=== PATIENT | male | born 1950 | race Caucasian/White ===

== ENCOUNTER 2023-01-21 20:29 | Inpatient (IN) | payer MEDICARE ==
[2023-01-21] MEDS ORDERED: Acetaminophen 325 MG Tab PO ONE (20:30)
[2023-01-21 20:44] LABS: HEMATOCRIT 45.9 % (38.3-50.1); MEAN CORPUSCULAR HEMOGLOBIN 30.2 pg (27.0-33.3); MEAN CORPUSCULAR HGB CONC 32.6 g/dL (28.7-35.3); MEAN CORPUSCULAR VOLUME 92.6 fL (80.8-98.7); MEAN PLATELET VOLUME 7.7 fL (6.7-11.0); PLATELET COUNT,PLT 308 x10(3)uL (117-477); RED BLOOD CELL COUNT 4.96 x10(6)uL (3.90-5.90)
[2023-01-21] MEDS ORDERED: Piperacillin/Tazobactam 3.375 GM in Sodium Chloride 0.9% 50 ML IV SCH (20:45)
[2023-01-21] MEDS ORDERED: Sodium Chloride 0.9% 1,000 ML IV SCH (20:45)
[2023-01-21 20:47] LABS: BLOOD UREA NITROGEN,BUN 24 mg/dL (7-18); BUN/CREATININE RATIO 18.5 (9-20); CALCIUM 8.7 mg/dL (8.6-10.2); CARBON DIOXIDE,CO2 27 mmol/L (21-32); CHLORIDE,CL 100 mmol/L (100-110); CREATININE 1.3 mg/dL (0.70-1.30); ESTIMATED GFR 58 mL/min (>60); GLUCOSE RANDOM 128 mg/dL (80-116); POTASSIUM,K 4.7 mmol/L (3.5-5.3); SODIUM,NA 138 mmol/L (135-145)
[2023-01-21 20:52] LABS: A/G RATIO 0.5; ALANINE AMINOTRANSFERASE,ALT 22 U/L (12-36); ALBUMIN 2.7 g/dL (3.2-4.6); ALKALINE PHOSPHATASE 168 IU/L (56-112); ASPARTATE AMNIOTRANSFERASE,AST 27 IU/L (5-25); BILIRUBIN TOTAL 0.7 mg/dL (0.1-1.3); PROTEIN TOTAL,TP 7.8 g/dL (6.0-8.0)
[2023-01-21 21:00] LABS: BAND PERCENT MAN 1 % (0-6); LYMPHOCYTES PERCENT MAN 10 % (13-37); MONOCYTES PERCENT MAN 3 % (4-12); SEG NEUTROPHILS PERCENT MAN 86 % (46-82)
[2023-01-21 21:01] LABS: TROPONIN I 11.2 pg/mL (4.0-60.3)
[2023-01-21 21:02] LABS: C-REACTIVE PROTEIN 17.99 mg/dL (<0.33)
[2023-01-21] MEDS ORDERED: Ondansetron 4 MG/2 ML SDV IV PRN (21:33)
[2023-01-21] MEDS ORDERED: Acetaminophen 325 MG Tab PO PRN (21:33)
[2023-01-21] MEDS ORDERED: Sodium Chloride 0.9% 1,000 ML IV ONE (22:58)
[2023-01-21] MEDS: Enoxaparin 40 MG/0.4 ML Syringe SUBCUT SCH (23:40)
[2023-01-21] MEDS ORDERED: Iopamidol 755 Mg/ML 100 ML Bottle IV SCH (23:45)
[2023-01-22] MEDS ORDERED: Lidocaine 2% HCl 6 ML Jel MM ONE (00:57)
[2023-01-22 01:34] LABS: BILIRUBIN,URINE NEGATIVE (NEGATIVE); GLUCOSE,URINE NORMAL (NORMAL); KETONES,URINE NEGATIVE (NEGATIVE); LEUKOCYTE ESTERASE,URINE MODERATE (NEGATIVE); NITRITE,URINE NEGATIVE (NEGATIVE); OCCULT BLOOD,URINE LARGE (NEGATIVE); PROTEIN,URINE TRACE mg/dL (NEGATIVE); UROBILINOGEN,URINE NORMAL (NEGATIVE)
[2023-01-22 01:39] LABS: APPEARANCE,URINE SLIGHTLY CLOUDY (CLEAR); BACTERIA,URINE FEW (NS); CALCIUM OXALATE CRYSTALS,URINE FEW (NS); COLOR,URINE YELLOW (YELLOW); RBC,URINE 40-50 (0-5); SQUAMOUS EPITHELIAL CELLS,UR OCCASIONAL (NS,R,O); WBC,URINE 20-30 (0-5)
[2023-01-22] MEDS: Piperacillin/Tazobactam 3.375 GM in Sodium Chloride 0.9% 50 ML IV SCH ×4 (03:51→21:56)
[2023-01-22 06:42] LABS: HEMATOCRIT 39.1 % (38.3-50.1); HEMOGLOBIN 12.7 g/dL (12.9-17.7); MEAN CORPUSCULAR HEMOGLOBIN 29.6 pg (27.0-33.3); MEAN CORPUSCULAR HGB CONC 32.4 g/dL (28.7-35.3); MEAN CORPUSCULAR VOLUME 91.4 fL (80.8-98.7); MEAN PLATELET VOLUME 7.7 fL (6.7-11.0); PLATELET COUNT,PLT 265 x10(3)uL (117-477); RED BLOOD CELL COUNT 4.28 x10(6)uL (3.90-5.90); RED CELL DISTRIBUTION WIDTH 13.8 % (12.4-15.0); WHITE BLOOD CELL COUNT,WBC 21.7 x10-3/uL (3.2-10.1)
[2023-01-22 06:49] LABS: BLOOD UREA NITROGEN,BUN 25 mg/dL (7-18); BUN/CREATININE RATIO 19.2 (9-20); CALCIUM 7.8 mg/dL (8.6-10.2); CARBON DIOXIDE,CO2 26 mmol/L (21-32); CHLORIDE,CL 106 mmol/L (100-110); CREATININE 1.3 mg/dL (0.70-1.30); EST CRCL DRUG DOSING (CG) 48.23 mL/min; ESTIMATED GFR 58 mL/min (>60); GLUCOSE RANDOM 131 mg/dL (80-116); POTASSIUM,K 3.8 mmol/L (3.5-5.3); SODIUM,NA 140 mmol/L (135-145)
[2023-01-22] MEDS: Sodium Chloride 0.9% 1,000 ML IV SCH (06:55)
[2023-01-22 07:03] LABS: BAND PERCENT MAN 8 % (0-6); LYMPHOCYTES PERCENT MAN 10 % (13-37); MONOCYTES PERCENT MAN 4 % (4-12); SEG NEUTROPHILS PERCENT MAN 78 % (46-82)
[2023-01-22] MEDS ORDERED: VANCOmycin 2 GM/400 ML 2 GM in Premix Bag 1 BAG IV ONE (11:05)
[2023-01-22] MEDS: Metoprolol Tartrate 100 MG Tab PO SCH ×2 (12:22→20:19)
[2023-01-22] MEDS: Aspirin 81 MG Tab.EC PO SCH (12:22)
[2023-01-22] MEDS: Furosemide 40 MG Tab PO SCH (12:23)
[2023-01-22] MEDS: Tamsulosin 0.4 MG Cap.ER PO SCH (12:23)
[2023-01-22] MEDS: Clopidogrel 75 MG Tab PO SCH (12:23)
[2023-01-22] MEDS: atorvaSTATin 40 MG Tab PO SCH (20:19)
[2023-01-22] MEDS: Saccharomyces Boulardii (Probiotic) 250 MG Cap PO SCH (20:19)
[2023-01-22] MEDS: Enoxaparin 40 MG/0.4 ML Syringe SUBCUT SCH (21:53)
[2023-01-23] MEDS: Sodium Chloride 0.9% 1,000 ML IV SCH (00:45)
[2023-01-23] MEDS: Piperacillin/Tazobactam 3.375 GM in Sodium Chloride 0.9% 50 ML IV SCH ×4 (03:44→22:11)
[2023-01-23 06:50] LABS: BASOPHILS PERCENT AUTO 0.4 % (0.3-3.8); EOSINOPHILS ABSOLUTE AUTO 0.3 x10-3/uL (0.0-0.6); EOSINOPHILS PERCENT AUTO 2.8 % (0.1-6.8); HEMATOCRIT 39.1 % (38.3-50.1); LYMPHOCYTES ABSOLUTE AUTO 1.1 x10-3/uL (0.5-4.5); LYMPHOCYTES PERCENT AUTO 9.3 % (15.8-45.3); MEAN CORPUSCULAR HEMOGLOBIN 30.1 pg (27.0-33.3); MEAN CORPUSCULAR HGB CONC 33.3 g/dL (28.7-35.3); MEAN CORPUSCULAR VOLUME 90.5 fL (80.8-98.7); MEAN PLATELET VOLUME 7.8 fL (6.7-11.0); MONOCYTES ABSOLUTE AUTO 0.5 x10-3/uL (0.0-1.2); MONOCYTES PERCENT AUTO 4.7 % (5.5-15.2); NEUTROPHILS ABSOLUTE AUTO 9.5 x10-3/uL (1.7-6.9); NEUTROPHILS PERCENT AUTO 82.8 % (40.3-71.8); PLATELET COUNT,PLT 246 x10(3)uL (117-477); RED BLOOD CELL COUNT 4.32 x10(6)uL (3.90-5.90); RED CELL DISTRIBUTION WIDTH 13.9 % (12.4-15.0); WHITE BLOOD CELL COUNT,WBC 11.5 x10-3/uL (3.2-10.1)
[2023-01-23 06:57] LABS: BLOOD UREA NITROGEN,BUN 20 mg/dL (7-18); CALCIUM 8.3 mg/dL (8.6-10.2); CARBON DIOXIDE,CO2 26 mmol/L (21-32); CHLORIDE,CL 104 mmol/L (100-110); ESTIMATED GFR 79 mL/min (>60); GLUCOSE RANDOM 101 mg/dL (80-116); POTASSIUM,K 3.3 mmol/L (3.5-5.3); SODIUM,NA 138 mmol/L (135-145)
[2023-01-23] MEDS: Clopidogrel 75 MG Tab PO SCH (08:45)
[2023-01-23] MEDS: Tamsulosin 0.4 MG Cap.ER PO SCH (08:46)
[2023-01-23] MEDS: Metoprolol Tartrate 100 MG Tab PO SCH ×2 (08:46→21:29)
[2023-01-23] MEDS: Saccharomyces Boulardii (Probiotic) 250 MG Cap PO SCH ×2 (08:46→21:29)
[2023-01-23] MEDS: Furosemide 40 MG Tab PO SCH (08:46)
[2023-01-23] MEDS: Aspirin 81 MG Tab.EC PO SCH (08:46)
[2023-01-23] MEDS ORDERED: Potassium Chloride 20 MEQ Tab.ER PO ONE (10:02)
[2023-01-23] MEDS ORDERED: VANCOmycin 1.25 GM/250 ML 1.25 GM in Premix Bag 1 BAG IV SCH (11:00)
[2023-01-23] MEDS: atorvaSTATin 40 MG Tab PO SCH (21:29)
[2023-01-23] MEDS: Enoxaparin 40 MG/0.4 ML Syringe SUBCUT SCH (21:30)
[2023-01-24] MEDS: Piperacillin/Tazobactam 3.375 GM in Sodium Chloride 0.9% 50 ML IV SCH (04:02)
[2023-01-24] MEDS: Sodium Chloride 0.9% 10 ML Syringe FLUSH PRN ×3 (04:38→10:32)
[2023-01-24 06:48] LABS: BASOPHILS PERCENT AUTO 0.4 % (0.3-3.8); EOSINOPHILS ABSOLUTE AUTO 0.3 x10-3/uL (0.0-0.6); EOSINOPHILS PERCENT AUTO 3.4 % (0.1-6.8); HEMATOCRIT 42.7 % (38.3-50.1); LYMPHOCYTES ABSOLUTE AUTO 1.4 x10-3/uL (0.5-4.5); LYMPHOCYTES PERCENT AUTO 15.6 % (15.8-45.3); MEAN CORPUSCULAR HEMOGLOBIN 29.9 pg (27.0-33.3); MEAN CORPUSCULAR HGB CONC 32.9 g/dL (28.7-35.3); MEAN CORPUSCULAR VOLUME 90.9 fL (80.8-98.7); MEAN PLATELET VOLUME 8.1 fL (6.7-11.0); MONOCYTES ABSOLUTE AUTO 0.6 x10-3/uL (0.0-1.2); MONOCYTES PERCENT AUTO 6.5 % (5.5-15.2); NEUTROPHILS ABSOLUTE AUTO 6.6 x10-3/uL (1.7-6.9); NEUTROPHILS PERCENT AUTO 74.1 % (40.3-71.8); PLATELET COUNT,PLT 291 x10(3)uL (117-477); RED BLOOD CELL COUNT 4.69 x10(6)uL (3.90-5.90); RED CELL DISTRIBUTION WIDTH 14.2 % (12.4-15.0)
[2023-01-24 06:50] LABS: BLOOD UREA NITROGEN,BUN 17 mg/dL (7-18); CALCIUM 8.5 mg/dL (8.6-10.2); CARBON DIOXIDE,CO2 29 mmol/L (21-32); CHLORIDE,CL 103 mmol/L (100-110); ESTIMATED GFR 79 mL/min (>60); GLUCOSE RANDOM 96 mg/dL (80-116); POTASSIUM,K 3.9 mmol/L (3.5-5.3); SODIUM,NA 140 mmol/L (135-145)
[2023-01-24] MEDS: Tamsulosin 0.4 MG Cap.ER PO SCH (08:49)
[2023-01-24] MEDS: Saccharomyces Boulardii (Probiotic) 250 MG Cap PO SCH ×2 (08:50→21:16)
[2023-01-24] MEDS: Furosemide 40 MG Tab PO SCH (08:50)
[2023-01-24] MEDS: Clopidogrel 75 MG Tab PO SCH (08:50)
[2023-01-24] MEDS: Aspirin 81 MG Tab.EC PO SCH (08:50)
[2023-01-24] MEDS: Metoprolol Tartrate 100 MG Tab PO SCH ×2 (08:50→21:16)
[2023-01-24] MEDS: cefTRIAXone 2 GM Vial IVPUSH SCH (10:26)
[2023-01-24] MEDS ORDERED: VANCOmycin 1 GM/200 ML 1 GM in Premix Bag 1 BAG IV SCH (11:00)
[2023-01-24] MEDS: Enoxaparin 40 MG/0.4 ML Syringe SUBCUT SCH (21:17)
[2023-01-24] MEDS: atorvaSTATin 40 MG Tab PO SCH (21:17)
[2023-01-25 06:53] LABS: BASOPHILS PERCENT AUTO 0.4 % (0.3-3.8); EOSINOPHILS ABSOLUTE AUTO 0.3 x10-3/uL (0.0-0.6); EOSINOPHILS PERCENT AUTO 3.4 % (0.1-6.8); HEMATOCRIT 44.7 % (38.3-50.1); HEMOGLOBIN 14.8 g/dL (12.9-17.7); LYMPHOCYTES ABSOLUTE AUTO 1.8 x10-3/uL (0.5-4.5); LYMPHOCYTES PERCENT AUTO 19.8 % (15.8-45.3); MEAN CORPUSCULAR HEMOGLOBIN 29.9 pg (27.0-33.3); MEAN CORPUSCULAR HGB CONC 33.2 g/dL (28.7-35.3); MEAN CORPUSCULAR VOLUME 90.2 fL (80.8-98.7); MEAN PLATELET VOLUME 8.1 fL (6.7-11.0); MONOCYTES ABSOLUTE AUTO 0.5 x10-3/uL (0.0-1.2); NEUTROPHILS ABSOLUTE AUTO 6.3 x10-3/uL (1.7-6.9); NEUTROPHILS PERCENT AUTO 70.4 % (40.3-71.8); PLATELET COUNT,PLT 314 x10(3)uL (117-477); RED BLOOD CELL COUNT 4.96 x10(6)uL (3.90-5.90); RED CELL DISTRIBUTION WIDTH 14.3 % (12.4-15.0)
[2023-01-25 06:58] LABS: BLOOD UREA NITROGEN,BUN 14 mg/dL (7-18); BUN/CREATININE RATIO 15.6 (9-20); CARBON DIOXIDE,CO2 29 mmol/L (21-32); CHLORIDE,CL 102 mmol/L (100-110); CREATININE 0.9 mg/dL (0.70-1.30); EST CRCL DRUG DOSING (CG) 69.67 mL/min; ESTIMATED GFR 90 mL/min (>60); GLUCOSE RANDOM 97 mg/dL (80-116); POTASSIUM,K 3.8 mmol/L (3.5-5.3); SODIUM,NA 139 mmol/L (135-145)
[2023-01-25] MEDS: Clopidogrel 75 MG Tab PO SCH (08:24)
[2023-01-25] MEDS: Metoprolol Tartrate 100 MG Tab PO SCH (08:24)
[2023-01-25] MEDS: Aspirin 81 MG Tab.EC PO SCH (08:24)
[2023-01-25] MEDS: Saccharomyces Boulardii (Probiotic) 250 MG Cap PO SCH (08:24)
[2023-01-25] MEDS: Furosemide 40 MG Tab PO SCH (08:24)
[2023-01-25] MEDS: Tamsulosin 0.4 MG Cap.ER PO SCH (08:25)
[2023-01-25] MEDS: cefTRIAXone 2 GM Vial IVPUSH SCH (10:35)
== END 2023-01-25 12:37 | disposition home health service (06) | DRG 698 ==
LOC: FB.ED 20:29 → FB.MS 21:34
PROVIDERS: ADMIT Family Medicine; ATTEND Family Medicine
PROC: 0T9B70Z Drainage of Bladder with Drainage Device, Via Natural or Artificial Opening (ICD-10-PCS; principal; 2023-01-22)
PROC: 3E03329 Introduction of Other Anti-infective into Peripheral Vein, Percutaneous Approach (ICD-10-PCS; 2023-01-22)
DX: T83.511A Infection and inflammatory reaction due to indwelling urethral catheter, initial encounter (principal); A41.89 Other specified sepsis; J96.01 Acute respiratory failure with hypoxia; R65.20 Severe sepsis without septic shock; N17.9 Acute kidney failure, unspecified; Z68.41 Body mass index [BMI] 40.0-44.9, adult; N13.8 Other obstructive and reflux uropathy; I50.32 Chronic diastolic (congestive) heart failure; E87.20 Acidosis, unspecified; N39.0 Urinary tract infection, site not specified; R31.0 Gross hematuria; E66.01 Morbid (severe) obesity due to excess calories; I11.0 Hypertensive heart disease with heart failure; Z20.822 Contact with and (suspected) exposure to COVID-19; E78.00 Pure hypercholesterolemia, unspecified; K40.90 Unilateral inguinal hernia, without obstruction or gangrene, not specified as recurrent; N40.1 Benign prostatic hyperplasia with lower urinary tract symptoms; I48.91 Unspecified atrial fibrillation; I69.320 Aphasia following cerebral infarction; Z79.82 Long term (current) use of aspirin; Z79.01 Long term (current) use of anticoagulants; Z79.02 Long term (current) use of antithrombotics/antiplatelets; Z79.899 Other long term (current) drug therapy; Y84.6 Urinary catheterization as the cause of abnormal reaction of the patient, or of later complication, without mention of misadventure at the time of the procedure
CPT/HCPCS: 36415; 51702; 71045; 71260; 80048; 80053; 80202; 81001; 83605; 83880; 84484; 85025; 86140; 87040; 87077; 87086; 87088; 87186; 93005; 93010; 97165-GO; 99222; 99232; 99238; 99285; A9270-GY; J0696; J1650; J2543; J3370; J3490; J7030; Q9967; U0002

== ENCOUNTER 2023-10-23 05:17 | Inpatient (IN) | payer MEDICARE ==
[2023-10-23 05:56] LABS: HEMATOCRIT 54.6 % (38.3-50.1); HEMOGLOBIN 17.7 g/dL (12.9-17.7); MEAN CORPUSCULAR HEMOGLOBIN 30.6 pg (27.0-33.3); MEAN CORPUSCULAR HGB CONC 32.4 g/dL (28.7-35.3); MEAN CORPUSCULAR VOLUME 94.5 fL (80.8-98.7); PLATELET COUNT,PLT 337 x10(3)uL (117-477); RED BLOOD CELL COUNT 5.78 x10(6)uL (3.90-5.90); RED CELL DISTRIBUTION WIDTH 14.5 % (12.4-15.0); WHITE BLOOD CELL COUNT,WBC 18.3 x10-3/uL (3.2-10.1)
[2023-10-23 06:06] LABS: BLOOD UREA NITROGEN,BUN 22 mg/dL (7-18); BUN/CREATININE RATIO 16.9 (9-20); CARBON DIOXIDE,CO2 28 mmol/L (21-32); CHLORIDE,CL 100 mmol/L (100-110); CREATININE 1.3 mg/dL (0.70-1.30); ESTIMATED GFR 58 mL/min (>60); GLUCOSE RANDOM 137 mg/dL (80-116); POTASSIUM,K 4.6 mmol/L (3.5-5.3); SODIUM,NA 139 mmol/L (135-145)
[2023-10-23 06:10] LABS: TROPONIN I 6.1 pg/mL (4.0-60.3)
[2023-10-23 06:15] LABS: C-REACTIVE PROTEIN 5.85 mg/dL (<0.50)
[2023-10-23 06:17] LABS: A/G RATIO 0.5; ALANINE AMINOTRANSFERASE,ALT 19 U/L (12-36); ALBUMIN 2.8 g/dL (3.2-4.6); ALKALINE PHOSPHATASE 114 IU/L (56-112); ASPARTATE AMNIOTRANSFERASE,AST 15 IU/L (5-25); BILIRUBIN TOTAL 1.1 mg/dL (0.1-1.3); PROTEIN TOTAL,TP 8.3 g/dL (6.0-8.0)
[2023-10-23 06:20] LABS: LYMPHOCYTES PERCENT MAN 15 % (13-37); MONOCYTES PERCENT MAN 1 % (4-12); SEG NEUTROPHILS PERCENT MAN 84 % (46-82)
[2023-10-23 06:31] LABS: BILIRUBIN,URINE NEGATIVE (NEGATIVE); GLUCOSE,URINE NORMAL (NORMAL); KETONES,URINE NEGATIVE (NEGATIVE); LEUKOCYTE ESTERASE,URINE LARGE (NEGATIVE); NITRITE,URINE NEGATIVE (NEGATIVE); OCCULT BLOOD,URINE LARGE (NEGATIVE); PROTEIN,URINE 30 mg/dL (NEGATIVE); UROBILINOGEN,URINE NORMAL (NEGATIVE)
[2023-10-23 06:33] LABS: APPEARANCE,URINE CLOUDY (CLEAR); BACTERIA,URINE MODERATE (NS); COLOR,URINE YELLOW (YELLOW); SQUAMOUS EPITHELIAL CELLS,UR FEW (NS,R,O); WBC,URINE >100 (0-5)
[2023-10-23] MEDS: Piperacillin/Tazobactam 4.5 GM in Sodium Chloride 0.9% 100 ML IV ONE (06:37)
[2023-10-23] MEDS: Sodium Chloride 0.9% 10 ML Syringe FLUSH PRN (06:40)
[2023-10-23 07:00] LABS: INFLUENZA A NAA NEGATIVE (NEGATIVE); INFLUENZA B NAA NEGATIVE (NEGATIVE); RESPIRATORY SYNCYTIAL VIR NAA NEGATIVE (NEGATIVE)
[2023-10-23 07:01] LABS: CORONAVIRUS COVID-19 NAA NEGATIVE (NEGATIVE)
[2023-10-23] MEDS: VANCOmycin 1.5 GM/300 ML 1.5 GM in Premix Bag 1 BAG IV ONE (07:17)
[2023-10-23] MEDS ORDERED: Sennosides/Docusate Sodium 50-8.6 MG Tab PO PRN (07:51)
[2023-10-23] MEDS ORDERED: Ondansetron 4 MG/2 ML SDV IV PRN (07:51)
[2023-10-23] MEDS: Sodium Chloride 0.9% 1,000 ML IV SCH (08:04)
[2023-10-23] MEDS: Enoxaparin 40 MG/0.4 ML Syringe SUBCUT SCH (09:13)
[2023-10-23] MEDS ORDERED: Acetaminophen 325 MG Tab PO PRN (10:20)
[2023-10-23] MEDS: Piperacillin/Tazobactam 4.5 GM in Sodium Chloride 0.9% 100 ML IV SCH (11:22)
[2023-10-23] MEDS: Metoprolol Tartrate 100 MG Tab PO SCH (11:24)
[2023-10-23] MEDS: Triamcinolone Acetonide 0.1% Crm 15 GM Tube TOP PRN (11:41)
[2023-10-23] MEDS: Acetaminophen 325 MG Tab PO PRN (11:41)
[2023-10-23] MEDS: VANCOmycin 1.5 GM/300 ML 1.5 GM in Premix Bag 1 BAG IV SCH (14:56)
[2023-10-23] MEDS: atorvaSTATin 40 MG Tab PO SCH (20:24)
[2023-10-23] MEDS: Metoprolol Tartrate 50 MG Tab PO SCH (20:46)
[2023-10-24 06:43] LABS: HEMATOCRIT 45.1 % (38.3-50.1); HEMOGLOBIN 14.7 g/dL (12.9-17.7); MEAN CORPUSCULAR HEMOGLOBIN 30.4 pg (27.0-33.3); MEAN CORPUSCULAR HGB CONC 32.5 g/dL (28.7-35.3); MEAN CORPUSCULAR VOLUME 93.7 fL (80.8-98.7); MEAN PLATELET VOLUME 7.7 fL (6.7-11.0); PLATELET COUNT,PLT 214 x10(3)uL (117-477); RED BLOOD CELL COUNT 4.82 x10(6)uL (3.90-5.90); RED CELL DISTRIBUTION WIDTH 14.6 % (12.4-15.0); WHITE BLOOD CELL COUNT,WBC 28.1 x10-3/uL (3.2-10.1)
[2023-10-24 06:53] LABS: A/G RATIO 0.5; ALANINE AMINOTRANSFERASE,ALT 16 U/L (12-36); ALBUMIN 1.9 g/dL (3.2-4.6); ALKALINE PHOSPHATASE 64 IU/L (56-112); ASPARTATE AMNIOTRANSFERASE,AST 61 IU/L (5-25); BLOOD UREA NITROGEN,BUN 26 mg/dL (7-18); BUN/CREATININE RATIO 21.7 (9-20); CALCIUM 7.7 mg/dL (8.6-10.2); CARBON DIOXIDE,CO2 24 mmol/L (21-32); CHLORIDE,CL 101 mmol/L (100-110); CREATININE 1.2 mg/dL (0.70-1.30); EST CRCL DRUG DOSING (CG) 54.01 mL/min; ESTIMATED GFR 63 mL/min (>60); GLUCOSE RANDOM 104 mg/dL (80-116); POTASSIUM,K 4.2 mmol/L (3.5-5.3); PROTEIN TOTAL,TP 6.1 g/dL (6.0-8.0); SODIUM,NA 135 mmol/L (135-145)
[2023-10-24 06:56] LABS: BAND PERCENT MAN 4 % (0-6); LYMPHOCYTES PERCENT MAN 4 % (13-37); MONOCYTES PERCENT MAN 2 % (4-12); SEG NEUTROPHILS PERCENT MAN 90 % (46-82)
[2023-10-24] MEDS: VANCOmycin 1.25 GM/250 ML 1.25 GM in Premix Bag 1 BAG IV SCH (07:08)
[2023-10-24] MEDS: Aspirin 81 MG Tab.EC PO SCH (09:32)
[2023-10-24] MEDS: Piperacillin/Tazobactam 4.5 GM in Sodium Chloride 0.9% 100 ML IV SCH (11:51)
[2023-10-24] MEDS: cefTRIAXone 2 GM Vial IVPUSH SCH (11:54)
[2023-10-24 22:45] LABS: HEMATOCRIT 43.6 % (38.3-50.1); HEMOGLOBIN 14.4 g/dL (12.9-17.7); MEAN CORPUSCULAR HEMOGLOBIN 30.9 pg (27.0-33.3); MEAN CORPUSCULAR VOLUME 93.6 fL (80.8-98.7); MEAN PLATELET VOLUME 8.1 fL (6.7-11.0); PLATELET COUNT,PLT 211 x10(3)uL (117-477); RED BLOOD CELL COUNT 4.66 x10(6)uL (3.90-5.90); RED CELL DISTRIBUTION WIDTH 14.7 % (12.4-15.0)
[2023-10-24 22:57] LABS: LACTIC ACID 1.7 mmol/L (0.4-2.0)
[2023-10-24 22:57] LABS: BAND PERCENT MAN 3 % (0-6); LYMPHOCYTES PERCENT MAN 4 % (13-37); MONOCYTES PERCENT MAN 4 % (4-12); SEG NEUTROPHILS PERCENT MAN 89 % (46-82)
[2023-10-24] MEDS: Albuterol/Ipratropium 3.0-0.5 MG/3 ML Neb Soln NEB PRN (23:20)
[2023-10-25] MEDS ORDERED: VANCOmycin 1.25 GM/250 ML 1.25 GM in Premix Bag 1 BAG IV SCH (01:00)
[2023-10-25 06:37] LABS: HEMATOCRIT 44.3 % (38.3-50.1); HEMOGLOBIN 14.3 g/dL (12.9-17.7); MEAN CORPUSCULAR HEMOGLOBIN 30.3 pg (27.0-33.3); MEAN CORPUSCULAR HGB CONC 32.4 g/dL (28.7-35.3); MEAN CORPUSCULAR VOLUME 93.8 fL (80.8-98.7); PLATELET COUNT,PLT 215 x10(3)uL (117-477); RED BLOOD CELL COUNT 4.72 x10(6)uL (3.90-5.90); RED CELL DISTRIBUTION WIDTH 14.7 % (12.4-15.0)
[2023-10-25 06:45] LABS: A/G RATIO 0.4; ALANINE AMINOTRANSFERASE,ALT 16 U/L (12-36); ALBUMIN 1.8 g/dL (3.2-4.6); ALKALINE PHOSPHATASE 75 IU/L (56-112); ASPARTATE AMNIOTRANSFERASE,AST 62 IU/L (5-25); BILIRUBIN TOTAL 0.7 mg/dL (0.1-1.3); BLOOD UREA NITROGEN,BUN 17 mg/dL (7-18); BUN/CREATININE RATIO 18.9 (9-20); CALCIUM 7.8 mg/dL (8.6-10.2); CARBON DIOXIDE,CO2 25 mmol/L (21-32); CHLORIDE,CL 106 mmol/L (100-110); CREATININE 0.9 mg/dL (0.70-1.30); EST CRCL DRUG DOSING (CG) 72.01 mL/min; ESTIMATED GFR 90 mL/min (>60); GLUCOSE RANDOM 95 mg/dL (80-116); POTASSIUM,K 3.6 mmol/L (3.5-5.3); PROTEIN TOTAL,TP 6.3 g/dL (6.0-8.0); SODIUM,NA 140 mmol/L (135-145)
[2023-10-25 06:53] LABS: BAND PERCENT MAN 3 % (0-6); LYMPHOCYTES PERCENT MAN 2 % (13-37); MONOCYTES PERCENT MAN 2 % (4-12); SEG NEUTROPHILS PERCENT MAN 93 % (46-82)
[2023-10-25] MEDS: Metoprolol Tartrate 100 MG Tab PO SCH (08:41)
[2023-10-25] MEDS: Furosemide 40 MG Tab PO SCH (10:00)
[2023-10-26 06:40] LABS: HEMATOCRIT 44.3 % (38.3-50.1); HEMOGLOBIN 14.7 g/dL (12.9-17.7); MEAN CORPUSCULAR HGB CONC 33.2 g/dL (28.7-35.3); MEAN CORPUSCULAR VOLUME 93.3 fL (80.8-98.7); MEAN PLATELET VOLUME 8.1 fL (6.7-11.0); PLATELET COUNT,PLT 251 x10(3)uL (117-477); RED BLOOD CELL COUNT 4.75 x10(6)uL (3.90-5.90); RED CELL DISTRIBUTION WIDTH 14.9 % (12.4-15.0); WHITE BLOOD CELL COUNT,WBC 18.5 x10-3/uL (3.2-10.1)
[2023-10-26 06:53] LABS: BAND PERCENT MAN 9 % (0-6); EOSINOPHILS PERCENT MAN 1 % (0-5); LYMPHOCYTES PERCENT MAN 11 % (13-37); MONOCYTES PERCENT MAN 6 % (4-12); SEG NEUTROPHILS PERCENT MAN 73 % (46-82)
[2023-10-26 06:55] LABS: A/G RATIO 0.4; ALANINE AMINOTRANSFERASE,ALT 22 U/L (12-36); ALBUMIN 1.9 g/dL (3.2-4.6); ALKALINE PHOSPHATASE 74 IU/L (56-112); ASPARTATE AMNIOTRANSFERASE,AST 37 IU/L (5-25); BILIRUBIN TOTAL 0.6 mg/dL (0.1-1.3); BLOOD UREA NITROGEN,BUN 13 mg/dL (7-18); CALCIUM 8.3 mg/dL (8.6-10.2); CARBON DIOXIDE,CO2 29 mmol/L (21-32); CHLORIDE,CL 103 mmol/L (100-110); EST CRCL DRUG DOSING (CG) 64.81 mL/min; ESTIMATED GFR 79 mL/min (>60); GLUCOSE RANDOM 92 mg/dL (80-116); POTASSIUM,K 3.4 mmol/L (3.5-5.3); PROTEIN TOTAL,TP 6.7 g/dL (6.0-8.0); SODIUM,NA 140 mmol/L (135-145)
[2023-10-26] MEDS: Potassium Chloride 20 MEQ Tab.ER PO SCH (10:07)
[2023-10-26] MEDS: Piperacillin/Tazobactam 4.5 GM in Sodium Chloride 0.9% 100 ML IV SCH (21:48)
[2023-10-27 06:27] LABS: HEMATOCRIT 43.7 % (38.3-50.1); HEMOGLOBIN 14.6 g/dL (12.9-17.7); MEAN CORPUSCULAR HEMOGLOBIN 30.9 pg (27.0-33.3); MEAN CORPUSCULAR HGB CONC 33.4 g/dL (28.7-35.3); MEAN CORPUSCULAR VOLUME 92.7 fL (80.8-98.7); MEAN PLATELET VOLUME 7.7 fL (6.7-11.0); PLATELET COUNT,PLT 282 x10(3)uL (117-477); RED BLOOD CELL COUNT 4.71 x10(6)uL (3.90-5.90); RED CELL DISTRIBUTION WIDTH 14.8 % (12.4-15.0); WHITE BLOOD CELL COUNT,WBC 17.3 x10-3/uL (3.2-10.1)
[2023-10-27 06:37] LABS: A/G RATIO 0.4; ALANINE AMINOTRANSFERASE,ALT 31 U/L (12-36); ALBUMIN 1.8 g/dL (3.2-4.6); ALKALINE PHOSPHATASE 85 IU/L (56-112); ASPARTATE AMNIOTRANSFERASE,AST 33 IU/L (5-25); BILIRUBIN TOTAL 0.8 mg/dL (0.1-1.3); BLOOD UREA NITROGEN,BUN 13 mg/dL (7-18); BUN/CREATININE RATIO 14.4 (9-20); CALCIUM 8.4 mg/dL (8.6-10.2); CARBON DIOXIDE,CO2 28 mmol/L (21-32); CHLORIDE,CL 102 mmol/L (100-110); CREATININE 0.9 mg/dL (0.70-1.30); EST CRCL DRUG DOSING (CG) 70.92 mL/min; ESTIMATED GFR 89 mL/min (>60); GLUCOSE RANDOM 100 mg/dL (80-116); POTASSIUM,K 3.6 mmol/L (3.5-5.3); PROTEIN TOTAL,TP 6.8 g/dL (6.0-8.0); SODIUM,NA 138 mmol/L (135-145)
[2023-10-27 06:40] LABS: BAND PERCENT MAN 1 % (0-6); EOSINOPHILS PERCENT MAN 2 % (0-5); LYMPHOCYTES PERCENT MAN 6 % (13-37); MONOCYTES PERCENT MAN 3 % (4-12); SEG NEUTROPHILS PERCENT MAN 88 % (46-82)
== END 2023-10-27 12:05 | disposition home or self-care (01) | DRG 698 ==
LOC: FB.ED 05:17 → FB.MS 07:51 → UNDOADMIN 10:10 → FB.MS 10:10 → UNDODISIN 10-27 12:05
PROVIDERS: ADMIT Family Medicine; ATTEND Family Medicine
DX: T83.511A Infection and inflammatory reaction due to indwelling urethral catheter, initial encounter (principal); A41.52 Sepsis due to Pseudomonas; I69.351 Hemiplegia and hemiparesis following cerebral infarction affecting right dominant side; J96.01 Acute respiratory failure with hypoxia; I50.9 Heart failure, unspecified; R65.20 Severe sepsis without septic shock; G81.91 Hemiplegia, unspecified affecting right dominant side; I48.20 Chronic atrial fibrillation, unspecified; E87.20 Acidosis, unspecified; I50.32 Chronic diastolic (congestive) heart failure; N17.9 Acute kidney failure, unspecified; R47.01 Aphasia; N39.0 Urinary tract infection, site not specified; Z66 Do not resuscitate; Z51.5 Encounter for palliative care; I11.0 Hypertensive heart disease with heart failure; E78.00 Pure hypercholesterolemia, unspecified; N43.3 Hydrocele, unspecified; N40.0 Benign prostatic hyperplasia without lower urinary tract symptoms; E66.9 Obesity, unspecified; E78.5 Hyperlipidemia, unspecified; H61.23 Impacted cerumen, bilateral; Z79.82 Long term (current) use of aspirin; Z86.73 Personal history of transient ischemic attack (TIA), and cerebral infarction without residual deficits; Z79.899 Other long term (current) drug therapy
CPT/HCPCS: 0241U; 36415; 51702; 71045; 76870; 80053; 80202; 81001; 83605; 83880; 84484; 85025; 86140; 87040; 87086; 87088; 87186; 93005; 93010; 94640; 96365; 96368; 99223; 99233; 99238; 99285; 99285-25; A9270-GY; J1650; J2543; J3370; J3490; J7030; J7620